=== PATIENT | male | born 1985 | race Caucasian/White ===

== ENCOUNTER 2023-08-15 08:54 | Emergency (ER) | payer OTHER ==
[~2023-08-15] VITALS: Ht 177.8 cm; Wt 81.2 kg
[2023-08-15] MEDS ORDERED: IBUPROFEN 600 MG TABLET ONE (09:21)
[2023-08-15] MEDS: IBUPROFEN 600 MG TABLET PO ONE (09:23)
[2023-08-15 09:57] VITALS: BP 135/70; TEMP 98.1; O2SAT 100
== END 2023-08-15 09:58 | disposition home or self-care (01) ==
LOC: ER 08:59
DX: S20.212A Contusion of left front wall of thorax, initial encounter (principal); V23.49XA Other motorcycle driver injured in collision with car, pick-up truck or van in traffic accident, initial encounter; Y93.89 Activity, other specified; Y92.89 Other specified places as the place of occurrence of the external cause; Y99.8 Other external cause status